=== PATIENT | male | born 1985 | race Hispanic/Latino ===

== ENCOUNTER 2020-02-24 07:33 | Outpatient (CLI) | payer BC ==
--- NOTE | 2020-02-24 09:12 | CT ---
CT ANGIOGRAM THORAX WITH IV CONTRAST AND 3-D RECONSTRUCTIONS CLINICAL INDICATION: Shortness of breath and cough for 9 days. COMPARISON: None FINDINGS: Pulmonary arteries: No filling defects are seen in the pulmonary arteries to suggest a pulmonary embo patricia. Aorta: Not opacified as this exam was tailored for evaluation of pulmonary arteries, but the thoracic aorta is normal in caliber. Lungs: Clear without evidence of consolidation or pleural effusion. Mediastinum: There is no evidence of lymphadenopathy. Thyroid gland: Artifact from dense contrast within left-sided venous structures which limits adequate evaluation complex thyroid gland has a grossly normal CT appearance. Osseous structures: No acute process. Chest wall: No abnormality visualized. Upper abdomen: Within normal limits for phase of imaging. IMPRESSION: 1. No CT evidence of a pulmonary embolus.
== END 2020-02-24 07:34 | disposition home or self-care (01) ==
LOC: CT 07:33 → ULT 07:34
PROVIDERS: ATTEND Family Medicine
DX: R06.02 Shortness of breath (principal); R06.00 Dyspnea, unspecified; I08.1 Rheumatic disorders of both mitral and tricuspid valves
CPT/HCPCS: 71275; 93306